=== PATIENT | female | born 1990 | race Two or more races ===

== ENCOUNTER 2022-12-18 10:13 | Emergency (ER) | payer MEDICAID ==
--- NOTE | 2022-12-18 11:25 | XRAY Report ---
PROCEDURE: Wrist 4 View LT INDICATIONS: L wrist pain no injury TECHNIQUE: 4 views of the wrist were acquired. COMPARISON: None. FINDINGS: Bones: No fractures or dislocations. No suspicious bony lesions. Soft tissues: No suspicious soft tissue calcifications or masses. IMPRESSION: No acute bony abnormality. Reviewed by: Lamberto Rodriguez on 12/18/2022 11:24 AM PDT Approved by: Lamberto Rodriguez on 12/18/2022 11:24 AM PDT Station ID: [id number]
--- NOTE | 2022-12-18 11:38 | ED Physician Documentation ---
History of Present Illness - Stated complaint Stated Complaint: LT WRIST/ARM PX - Chief complaint Chief Complaint: General - Additonal information Additional information: 32-year-old female here for evaluation of 2 days left wrist pain. Reports waking up 2 mornings ago with pain in the wrist that she is not able to explain with history of trauma or falls. Pain mostly over the radial side. No swelling or erythema. No fevers. No history of similar injury. Patient is right-hand dominant. Patient has not taken anything for pain Review of Systems Musculoskeletal: reports: Joint pain PD PAST MEDICAL HISTORY - Allergies Allergies/Adverse Reactions: Allergies Allergy/AdvReac Type Severity Reaction Status Date / Time No Known Drug Allergies Allergy Verified 12/18/22 10:28 PD ED PE NORMAL - General General: Alert and oriented X 3, No acute distress, Well developed/nourished - HEENT HEENT: Atraumatic - Neck Neck: Supple, no meningeal sign - Cardiac Cardiac: RRR, No murmur - Respiratory Respiratory: No respiratory distress, Clear bilaterally - Abdomen Abdomen: Normal bowel sounds, Soft - Extremities Extremities: No deformity, Other (Mild tenderness over the dorsum of the left wrist radial side. Negative anatomic snuffbox tenderness. No swelling ecchymosis erythema noted. Neurovascular intact. 2+ DP pulse.) Results - Vitals Vitals: Vital Signs - 24 hr 12/18/22 10:25 Temperature 36.4 C L Heart Rate 84 Respiratory 20 Rate Blood Pressure 94/76 O2 Saturation 95 Oxygen O2 Source Room air - Rads (name of study) left wrist Relevant Findings:: Final report received (No acute bony abnormality) PD Medical Decision Making - ED course Complexity details: reviewed results, d/w patient ED course: 32-year-old female here for evaluation of acute atraumatic left wrist pain developed now 48 hours ago. No falls, fevers. Benign exam of the wrist with mild tenderness on the dorsum of the wrist radial side though no anatomic snuffbox tenderness. X-ray is unremarkable. No evidence of infection, tenosynovitis. Unclear etiology. Recommended left wrist splint with OTC Tylenol and Motrin. Follow-up with PCP 7 to 10 days if not markedly better. Return sooner for concerns of infection. Departure - Departure Disposition: 01 Home, Self Care Clinical Impression: Left wrist pain Condition: Stable Record reviewed to determine appropriate education?: Yes Comments: The x-ray of your left wrist does not show any broken bones. Is not clear why your wrist is hurting though clinically there does not seem to be any suspicion for infection or inflammation of the tendons. I would like you to try taking ibuprofen 600 mg with food 2-3 times a day or alternate with Tylenol 500 mg also 2-3 times a day. You can wear the wrist splint for comfort. If not markedly better in 7 to 10 days your primary care provider may elect to make a referral for you to physical therapy or consideration of referral for advanced imaging or hand therapy. Return to the ED if you develop swelling of the wrist such as redness, have milky drainage, fevers red streaking or any concerns of infection.
[2022-12-18 11:50] VITALS: BP 100/75; O2SAT 98
== END 2022-12-18 11:44 | disposition home or self-care (01) ==
LOC: ED 10:13
DX: M25.532 Pain in left wrist (principal)
CPT/HCPCS: 99282; 99283

== ENCOUNTER 2023-02-22 12:20 | Emergency (ER) | payer MEDICAID ==
[2023-02-22 12:29] VITALS: BP 114/83; O2SAT 95
--- NOTE | 2023-02-22 12:47 | XRAY Report ---
PROCEDURE: Chest 2 View X-Ray INDICATIONS: COUGH, SOA TECHNIQUE: 2 views of the chest were acquired. COMPARISON: None. FINDINGS: Surgical changes and devices: None. Lungs and pleura: No pleural effusions or pneumothorax. Mild perihilar opacity. Mediastinum: Mediastinal contours appear normal. Heart size is normal. Bones and chest wall: No suspicious bony lesions. Overlying soft tissues appear unremarkable. IMPRESSION: Mild atypical pneumonia. Reviewed by: Sultana Mistry MD on 02/22/2023 12:46 PM PST Approved by: Sultana Mistry MD on 02/22/2023 12:46 PM [facility] Station ID: [id number]
--- NOTE | 2023-02-22 12:58 | ED Physician Documentation ---
PD HPI PED ILLNESS - Stated complaint Stated Complaint: SOA,RUNNY NOSE,COUGH - Chief complaint Chief Complaint: Resp - History obtained from History obtained from: Patient - Additional information Additional information: She is been sick for about a week with a productive cough and shortness of breath especially at night. She does have a history of asthma. She has had some brief measured fevers with this but they have been fleeting. She has mild runny nose. Her daughter has been sick with a viral URI. She does have a history of asthma and was hospitalized as a child but not as an adult. She tried a steroid inhaler which was ineffective and we discussed that that generally is not for rescue purposes and more for maintenance therapy. She does not have a rescue inhaler at this time. PD PAST MEDICAL HISTORY - Past Medical History Past Medical History: Yes Respiratory: Asthma - Past Surgical History Past Surgical History: No - Present Medications Home Medications: Ambulatory Orders Medication Instructions Recorded Confirmed Albuterol Sulf [Ventolin Hfa 1 - 2 puffs INH Q4HR PRN #1 each 02/22/23 Inhaler] Doxycycline [Vibramycin] 100 mg PO BID #14 tablet 02/22/23 Lactobacillus Combination No.4 1 each PO BID #30 cap 02/22/23 [Probiotic] guaiFENesin/CODEINE [Robitussin AC] 5 - 10 ml PO Q6H PRN #120 ml 02/22/23 predniSONE [Deltasone] 20 mg PO [id number] #21 tab 02/22/23 - Allergies Allergies/Adverse Reactions: Allergies Allergy/AdvReac Type Severity Reaction Status Date / Time No Known Drug Allergies Allergy Verified 02/22/23 12:29 - Social History Does the pt smoke?: No Smoking Status: Never smoker Does the pt drink ETOH?: No Does the pt have substance abuse?: No - Immunizations Immunizations are current?: Yes PD ED PE NORMAL - Vitals Vital signs reviewed: Yes - General General: Alert and oriented X 3, No acute distress - HEENT HEENT: PERRL, EOMI, Ears normal, Pharynx benign - Neck Neck: No bony TTP - Cardiac Cardiac: RRR, No murmur - Respiratory Respiratory: No respiratory distress, Other (mos exp wheezes, no focal findings) Results - Vitals Vitals: Vital Signs - 24 hr 02/22/23 12:26 Temperature 37.3 C Heart Rate 91 Respiratory 16 Rate Blood Pressure 114/83 H O2 Saturation 95 Oxygen O2 Source Room air - Rads (name of study) 2 view chest x-ray showing mild atypical pneumonia. Relevant Findings:: Final report received, EMP independent interpretation of test PD Medical Decision Making - ED course ED course: She has an asthma exacerbation in the setting of a mostly viral illness but also an atypical pneumonia on chest x-ray. Treated with steroids, doxycycline, codeine for nighttime use and a rescue inhaler which she lacked. Departure - Departure Disposition: 01 Home, Self Care Clinical Impression: Viral respiratory illness Asthma Qualifiers: Asthma severity: mild Asthma persistence: intermittent Asthma complication type: with acute exacerbation Qualified Code(s): J45.21 - Mild intermittent asthma with (acute) exacerbation Pneumonia Qualifiers: Pneumonia type: due to unspecified organism Laterality: bilateral Lung location: unspecified part of lung Qualified Code(s): J18.9 - Pneumonia, unspecified organism Condition: Good Record reviewed to determine appropriate education?: Yes Instructions: Asthma Dc, Pneumonia Dc Prescriptions: Albuterol Sulf [Ventolin Hfa Inhaler] 1 - 2 puffs INH Q4HR PRN #1 each PRN Reason: Shortness Of Air/Wheezing predniSONE [Deltasone] 20 mg PO [id number] #21 tab Lactobacillus Combination No.4 [Probiotic] 1 each PO BID #30 cap guaiFENesin/CODEINE [Robitussin AC] 5 - 10 ml PO Q6H PRN #120 ml PRN Reason: Cough Doxycycline [Vibramycin] 100 mg PO BID #14 tablet Comments: I [facility] [address] [facility] [place]. Call your doctor to arrange a follow-up appointment, make the next available appointment. In the interim, return anytime if worse or if new symptoms develop. Forms: PCP List Discharge Date/Time: 02/22/23 13:11
== END 2023-02-22 13:11 | disposition home or self-care (01) ==
LOC: ED 12:20
DX: J06.9 Acute upper respiratory infection, unspecified (principal); J45.21 Mild intermittent asthma with (acute) exacerbation; J18.9 Pneumonia, unspecified organism
CPT/HCPCS: 99284

== ENCOUNTER 2023-03-14 14:10 | Emergency (ER) | payer MEDICAID ==
[2023-03-14 14:52] VITALS: BP 114/72; O2SAT 97
[2023-03-14 15:53] LABS: RAPID STREP SCREEN Negative (Negative)
[2023-03-14 16:33] LABS: B. PARAPERTUSSIS- RESP PCR PAN NOT DETECTED; B. PERTUSSIS- RESP PCR PANEL NOT DETECTED; C. PNEUMONIAE- RESP PCR PANEL NOT DETECTED; CORONAVIRUS 229E-RESP PCR NOT DETECTED; CORONAVIRUS HKU1-RESP PCR NOT DETECTED; CORONAVIRUS NL63-RESP PCR NOT DETECTED; CORONAVIRUS OC43-RESP PCR NOT DETECTED; HUMAN METAPNEUMOVIRUS NOT DETECTED; INFLUENZA A- RESP PCR PANEL NOT DETECTED; INFLUENZA B - RESP PCR PANEL NOT DETECTED; M. PNEUMONIAE- RESP PCR PANEL NOT DETECTED; PARAINFLUENZA VIRUS 1 NOT DETECTED; PARAINFLUENZA VIRUS 2 NOT DETECTED; PARAINFLUENZA VIRUS 3 NOT DETECTED; PARAINFLUENZA VIRUS 4 NOT DETECTED; RHINOVIRUS/ENTEROVIRUS NOT DETECTED; RSV- RESP PCR PANEL NOT DETECTED; SARS-CoV-2 -RESP PCR PANEL NOT DETECTED
--- NOTE | 2023-03-14 16:52 | XRAY Report ---
PROCEDURE: Chest 2V INDICATIONS: cough TECHNIQUE: 2 views of the chest were acquired. COMPARISON: Chest x-ray 02/22/2023 FINDINGS: Surgical changes and devices: None. Lungs and pleura: No pleural effusions or pneumothorax. Lungs are clear. Mediastinum: Mediastinal contours appear normal. Heart size is normal. Bones and chest wall: No suspicious bony lesions. Overlying soft tissues appear unremarkable. IMPRESSION: No acute cardiopulmonary process. Reviewed by: Joaquina Dalton MD on 03/14/2023 4:51 PM [facility] Approved by: Joaquina Dalton MD on 03/14/2023 4:51 PM [facility] Station ID: [id number]
--- NOTE | 2023-03-14 17:34 | ED Physician Documentation ---
PD HPI URI - Stated complaint Stated Complaint: SOA,COUGH - Chief complaint Chief Complaint: Resp - History obtained from History obtained from: Patient - History of Present Illness Timing - onset: How many weeks ago (3) Timing duration: Weeks (3) Timing details: Gradual onset, Still present (was feeling improved for awhile with still some cough and now worse again with sputum production.) Associated symptoms: Productive cough, Dyspnea Contributing factors: COPD / asthma Recently seen: Clinic (a week ago without improvement on abx.) Review of Systems Nose: reports: Congestion Cardiac: reports: Chest pain / pressure. denies: Palpitations Respiratory: reports: Dyspnea, Cough, Wheezing GI: denies: Abdominal Pain PD PAST MEDICAL HISTORY - Past Medical History Cardiovascular: None Respiratory: Asthma - Past Surgical History Past Surgical History: No - Present Medications Home Medications: Ambulatory Orders Medication Instructions Recorded Confirmed Albuterol Sulf [Ventolin Hfa 1 - 2 puffs INH Q4HR PRN #1 each 02/22/23 Inhaler] Albuterol Sulf [Ventolin Hfa 2 - 3 puffs INH QID PRN #1 each 03/14/23 Inhaler] Doxycycline Hyclate 100 mg PO BID 7 Days #14 cap 03/14/23 dexAMETHasone [Decadron] 4 mg PO DAILY #7 tablet 03/14/23 - Allergies Allergies/Adverse Reactions: Allergies Allergy/AdvReac Type Severity Reaction Status Date / Time No Known Drug Allergies Allergy Verified 03/14/23 14:48 - Social History Does the pt smoke?: No Smoking Status: Never smoker Does the pt drink ETOH?: No Does the pt have substance abuse?: No - Immunizations Immunizations are current?: Yes PD ED PE NORMAL - Vitals Vital signs reviewed: Yes - General General: Alert and oriented X 3, No acute distress, Well developed/nourished - Neck Neck: Supple, no meningeal sign, No adenopathy - Cardiac Cardiac: RRR, No murmur - Respiratory Respiratory: No respiratory distress - Abdomen Abdomen: Soft, Non tender Results - Vitals Vitals: Oxygen O2 Source Room air - Labs Labs: Microbiology 03/14/23 14:45 Group A Strep Throat Culture - Final Throat MIXED OROPHARYNGEAL KEYLA PRESENT. NO BETA STREP PRESENT IN CULTURE. Laboratory Tests 03/14/23 03/14/23 14:45 14:45 Nasal Adenovirus (PCR) NOT DETECTED Nasal B. parapertussis DNA (PCR) NOT DETECTED Nasal Coronavir 229E PCR NOT DETECTED Nasal Coronavir HKU1 PCR NOT DETECTED Nasal Coronavir NL63 PCR NOT DETECTED Nasal Coronavir OC43 PCR NOT DETECTED Nasal Enterovir/Rhinovir PCR NOT DETECTED Nasal Influenza B PCR NOT DETECTED Nasal Influenza A PCR NOT DETECTED Nasal Parainfluen 1 PCR NOT DETECTED Nasal Parainfluen 2 PCR NOT DETECTED Nasal Parainfluen 3 PCR NOT DETECTED Nasal Parainfluen 4 PCR NOT DETECTED Nasal RSV (PCR) NOT DETECTED Nasal B.pertussis DNA PCR NOT DETECTED Nasal C.pneumoniae (PCR) NOT DETECTED Percy Human Metapneumo PCR NOT DETECTED Nasal M.pneumoniae (PCR) NOT DETECTED Nasal SARS-CoV-2 (PCR) NOT DETECTED Group A Strep Rapid Negative - Rads (name of study) chest xray Relevant Findings:: Prelim report reviewed, EMP independent interpretation of test (no infiltrates nor pneumonia.) PD Medical Decision Making - ED course Complexity details: reviewed results (negative for major virused on PCR testing. CXR without infiltrate. However prolonged cough and now worse with sounding like secondary bronchitis. Had not improved with augmentin. Can try Doxycycloine.), considered differential, d/w patient Departure - Departure Disposition: Home, Self Care Clinical Impression: Bronchitis, Wheezing, Dyspnea Condition: Stable Record reviewed to determine appropriate education?: Yes Prescriptions: dexAMETHasone [Decadron] 4 mg PO DAILY #7 tablet Doxycycline Hyclate 100 mg PO BID 7 Days #14 cap Albuterol Sulf [Ventolin Hfa Inhaler] 2 - 3 puffs INH QID PRN #1 each PRN Reason: Shortness Of Air/Wheezing Comments: Your chest x-ray is clear without any signs of pneumonia. Your viral panel test is negative for the major viruses. It may be that you just have continued inflammation and irritation of the bronchioles and airways from your prior pneumonia/infection and can do okay with the inhaler 2 to 3 puffs 4 times daily for the next week or so in combination with redosing of the steroid for inflammation. Stay well-hydrated. Tylenol if needed for pains or fevers. Your strep test is negative on the rapid test. We will do a culture. This will result in a day or 2 we will call you if there is any signs of bacterial infection based on that. At this point there could be a resurgence of the bronchitis infectious. If you are not improving well with the steroid and inhaler alone or start having fevers, increased sputum etc. then add doxycycline antibiotic as well. I sent the prescriptions to the [facility] pharmacy in [place]. Forms: PCP List Discharge Date/Time: 03/14/23 17:59
[2023-03-14] MEDS ORDERED: dexAMETHasone 4 MG TABLET PO STA (17:48)
== END 2023-03-14 17:59 | disposition home or self-care (01) ==
LOC: ED 14:10
DX: J40 Bronchitis, not specified as acute or chronic (principal); Z11.52 Encounter for screening for COVID-19
CPT/HCPCS: 71046; 87070; 87430; 87633; 99284; J8540

== ENCOUNTER 2023-10-25 13:06 | Outpatient (CLI) | payer MEDICAID | END 2023-10-25 23:59 | disposition critical access hospital (66) | LOC: EMS 13:06 | DX: M54.50 Low back pain, unspecified (principal) | CPT/HCPCS: A0425; A0429; A0999 ==

== ENCOUNTER 2023-10-25 13:45 | Emergency (ER) | payer MEDICAID ==
[2023-10-25 13:56] VITALS: O2SAT 98
--- NOTE | 2023-10-25 15:01 | ED Physician Documentation ---
PD HPI BACK PAIN - Stated complaint Stated Complaint: LOW BACK PX - Chief complaint Chief Complaint: Back Pain - Additional information Additional information: 32-year-old female with history of asthma, known back spasms and a fall about 3 years ago onto her lower back. Patient says that yesterday she started to feel a twinge in her lower back and pain has increased in severity since then. She is has not taken any Tylenol or ibuprofen she is trying smoking weed and she said this gave her the ability to crawl inside the house and has been unable to walk since the fall. She has no urinary or bowel incontinence she did have calling 911 today because of the severity of the pain. At rest she has about 2 out of 10 pain with any sort of movement or walks she experiences an 8 out of 10 pain. No nausea or vomiting no recent fevers or chills no dysuria no CVA tenderness. PD PAST MEDICAL HISTORY - Past Medical History Past Medical History: Yes Cardiovascular: None Respiratory: Asthma - Past Surgical History Past Surgical History: No - Present Medications Home Medications: Ambulatory Orders Medication Instructions Recorded Confirmed Albuterol Sulf [Ventolin Hfa 1 - 2 puffs INH Q4HR PRN #1 each 02/22/23 Inhaler] Albuterol Sulf [Ventolin Hfa 2 - 3 puffs INH QID PRN #1 each 03/14/23 Inhaler] Doxycycline Hyclate 100 mg PO BID 7 Days #14 cap 03/14/23 dexAMETHasone [Decadron] 4 mg PO DAILY #7 tablet 03/14/23 Cyclobenzaprine [Flexeril] 10 mg PO TID PRN 6 Days #20 tablet 10/25/23 - Allergies Allergies/Adverse Reactions: Allergies Allergy/AdvReac Type Severity Reaction Status Date / Time ibuprofen AdvReac Unknown Verified 10/25/23 14:11 - Social History Does the pt smoke?: No Smoking Status: Never smoker Does the pt drink ETOH?: No Does the pt have substance abuse?: No - Immunizations Immunizations are current?: Yes PD ED PE NORMAL - Vitals Vital signs reviewed: Yes - General General: Alert and oriented X 3, No acute distress, Well developed/nourished - HEENT HEENT: Atraumatic, PERRL - Neck Neck: Supple, no meningeal sign, No bony TTP - Respiratory Respiratory: No respiratory distress, Clear bilaterally - Back Back: No CVA TTP - Derm Derm: No rash - Neuro Neuro: Alert and oriented X 3, imagery intelligence 2-12 intact, No motor deficit, No sensory deficit, Normal speech Eye Opening: Spontaneous Motor: Obeys Commands Verbal: Oriented GCS Score: 15 - Psych Psych: Normal mood, Normal affect - Free text exam Free text exam: Neck and back are without deformity, external skin changes, or signs of trauma. Curvature of the cervical, thoracic, and lumbar spine are within normal limits. Bony features of the shoulders and hips are of equal height bilaterally. Posture is upright, gait is smooth, steady, and within normal limits. No tenderness noted on palpation of the spinous processes. Spinous processes are midline. Cervical, thoracic, and lumbar paraspinal muscles are not tender and are without spasm. No discomfort is noted with flexion, extension, and [id number] rotation of the cervical spine, full range of motion is noted. Full range of motion including flexion, extension, and [id number] rotation of the thoracic and lumbar spine are noted and without discomfort. Straight leg raise test is negative bilaterally. Sensation to the upper and lower extremities is normal bilaterally. No clonus is noted. 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 Dorsi/plantar flexion is normal bilaterally. Results - Vitals Vitals: Vital Signs - 24 hr 10/25/23 10/25/23 13:46 17:06 Temperature 37.3 C 36.1 C L Heart Rate 67 77 Respiratory 20 18 Rate Blood Pressure 90/75 113/95 H O2 Saturation 98 98 Oxygen O2 Source Room air PD Medical Decision Making - ED course ED course: This patient presents with back pain most consistent with muscle spasm. Differential diagnoses includes lumbago versus musculoskeletal spasm / strain versus sciatica. Less likely sciatica as straight leg raise test was negative. No back pain red flags on history or physical. Presentation not consistent with malignancy (lack of history of malignancy, lack of B symptoms), fracture (no trauma, no bony tenderness to palpation), cauda equina (no bowel or urinary incontinence/retention, no saddle anesthesia, no distal weakness), AAA, viscus perforation, osteomyelitis or epidural abscess (no IVDU, vertebral tenderness), renal colic, pyelonephritis (afebrile, no CVAT, no urinary symptoms). Given the clinical picture, no indication for imaging at this time. Pain was significantly alleviated after receiving Toradol, Flexeril, Tylenol. Patient able to ambulate without any difficulty No weakness prescription of Flexeril sent to her preferred pharmacy and she is told to alternate between Tylenol ibuprofen for pain discomfort at home. She is also told to establish care with primary care provider soon as possible for physical therapy referral. Departure - Departure Disposition: 01 Home, Self Care Clinical Impression: Muscle spasm Instructions: ED Low Back Pain Injury Prescriptions: Cyclobenzaprine [Flexeril] 10 mg PO TID PRN 6 Days #20 tablet PRN Reason: Spasms Comments: Thank you for trusting us with your care. I would recommend getting in with primary care provider soon as possible and [place]. You can consider things like acupuncture or physical therapy to help with your lower back pain you can take 1000 mg of Tylenol every 8 hours and 600 mg of ibuprofen every 6 hours for pain and discomfort. I have sent a prescription of muscle relaxers I sent a prescription of Flexeril to [facility] in [place]. Make sure that you are getting out of bed and continuing to walk around and deep breathing through the pain and discomfort you are experiencing. Laying around not moving will be very tempting due to the muscle spasms but this will unfortunately make things worse. You can apply ice 20 minutes at a time 1 hour off please come back to the emergency department for having any fevers or chills, urinary or bowel incontinence, or any other concerning emergent symptoms. Discharge Date/Time: 10/25/23 17:06
[2023-10-25] MEDS: KETOROLAC 30 MG/ML VIAL IM STA (15:37)
[2023-10-25] MEDS: CYCLOBENZAPRINE 10 MG TABLET PO STA (15:39)
[2023-10-25] MEDS: ACETAMINOPHEN 500 MG TABLET PO STA (15:39)
[2023-10-25 17:12] VITALS: BP 113/95
== END 2023-10-25 17:06 | disposition home or self-care (01) ==
LOC: EDUNIT# → ED 13:45
DX: M62.830 Muscle spasm of back (principal)
CPT/HCPCS: 96372; 99283; A9270